=== PATIENT | female | born 1965 | race Caucasian/White ===

== ENCOUNTER 2024-03-05 20:59 | Emergency (ER) | payer OTHER ==
[~2024-03-05] VITALS: Ht 165.1 cm; Wt 89.7 kg
[2024-03-05] MEDS ORDERED: LOSARTAN POTASS25 MG PO (21:16)
[2024-03-05] MEDS ORDERED: METFORMIN HCL500 MG PO (21:17)
[2024-03-05] MEDS ORDERED: SINGULAIR4 M1 PO (21:17)
[2024-03-05] MEDS ORDERED: TRAZODONE HCL50 MG (21:17)
[2024-03-05] MEDS ORDERED: VENTOLIN HFA18 GM INH (21:17)
[2024-03-05] MEDS ORDERED: CYMBALTA20 MG PO (21:17)
[2024-03-05] MEDS ORDERED: ADVAIR 100-501 EACH INH (21:18)
[2024-03-05 21:24] LABS: BASOPHILS 1.1 % (0-2); EOSINOPHILS 7.3 % (0-6); HEMATOCRIT 42.1 % (35.0-50.0); HEMOGLOBIN 14.3 g/dL (12.0-18.0); LYMPHOCYTES 20.6 % (24-44); MCH 29.4 (27-36); MCHC 34.1 g/dl (30-36); MCV 86.4 fl (81-99); MONOCYTES 9.5 % (0-12); NEUTROPHILS 61.5 % (39-80); PLATELET COUNT 280 K/uL (140-440); RBC 4.87 M/ul (4.3-5.7); RDW 14.6 (10.5-15.0)
[2024-03-05] MEDS ORDERED: IBLOOD GLUCOSE TEST STRIP 1 EA TEST XX ONE (21:30)
[2024-03-05] MEDS ORDERED: ondansetron HCL 4 MG/2 ML VIAL IV ONE (21:30)
[2024-03-05 21:39] LABS: ALBUMIN 3.7 g/dL (3.4-5.0); ALBUMIN/GLOBULIN RATIO 0.97 (1.1-2.4); ALKALINE PHOSPHATASE 116 U/L (46-116); ALT (SGPT) 21 U/L (14-59); ANION GAP 16.1 (7-21); AST (SGOT) 9 U/L (15-37); BILIRUBIN, TOTAL 0.5 ng/dL (0.2-1.0); BUN/CREATININE RATIO 13.51 (6.0-28.6); CALCIUM 8.9 mg/dL (8.5-10.1); CARBON DIOXIDE 27 mmol/L (21-32); CHLORIDE 100 mmol/L (98-107); CREATININE, SERUM 0.74 mg/dL (0.55-1.02); GLOMERULAR FILTRATION RATE,EST 93 mL/min (>60); MAGNESIUM 1.9 mg/dL (1.8-2.4); POTASSIUM 4.1 mmol/L (3.5-5.1); PROTEIN, TOTAL 7.5 g/dL (6.4-8.2); UREA NITROGEN 10 mg/dL (7-18)
[2024-03-05] MEDS ORDERED: LACTATED RINGER'S 1,000 ML IV ONE ×2 (21:45→23:15)
[2024-03-05] MEDS ORDERED: FAMOTIDINE 20 MG/ 2 ML VIAL IV ONE (21:45)
[2024-03-05 22:40] LABS: BILIRUBIN, URINE NEGATIVE (negative); BLOOD/HGB, URINE NEGATIVE (Negative); KETONE, URINE NEGATIVE (Negative); LEUK ESTERASE, URINE NEGATIVE (negative); NITRITE, URINE NEGATIVE (negative)
[2024-03-05] MEDS ORDERED: MECLIZINE HCL 25 MG TAB PO ONE (23:15)
[2024-03-05] MEDS ORDERED: MECLIZINE HCL25 MG PO (23:52)
[2024-03-05 23:54] VITALS: BP 126/71
--- NOTE | 2024-03-06 13:30 | EKG ---
[facility] [address] [facility] [place], [place] [address] Signed Normal sinus rhythm Normal ECG No previous ECGs available Confirmed by Edmundo Thao MD ([id number]) on 03/06/2024 1:30:16 PM Electronically Signed By: EDMUNDO THAO MD 03/06/24 1330 PATIENT NAME: SUSANNE COREA Electrocardiogram DATE OF : 65 PHYSICIAN: EDMUNDO THAO MD REPORT #: [id number] REPORT IS CONFIDENTIAL AND NOT TO BE RELEASED WITHOUT AUTHORIZATION
== END 2024-03-06 | disposition home or self-care (01) ==
LOC: ED 20:59
PROVIDERS: Internal Medicine
DX: E86.0 Dehydration (principal); H81.11 Benign paroxysmal vertigo, right ear; E11.9 Type 2 diabetes mellitus without complications; I10 Essential (primary) hypertension; J44.89 Other specified chronic obstructive pulmonary disease; Z86.73 Personal history of transient ischemic attack (TIA), and cerebral infarction without residual deficits; Z88.0 Allergy status to penicillin; Z79.84 Long term (current) use of oral hypoglycemic drugs; Z79.51 Long term (current) use of inhaled steroids; Z79.899 Other long term (current) drug therapy
CPT/HCPCS: 36415; 71045; 80053; 81003; 83735; 84484; 85025; 93005; 93010; 96361; 96374; 96375; 99285-25; A9270; J2405; J7121